=== PATIENT | male | born 2000 | race Caucasian/White ===

== ENCOUNTER 2020-06-21 08:56 | Emergency (ER) | payer BC ==
[2020-06-21 09:01] VITALS: BP 156/87
[2020-06-21] MEDS ORDERED: HYDROCODONE/ACETAMINOPHEN 5-325 MG (6 TAB/ER DISP) PO PRN (09:50)
[2020-06-21] MEDS ORDERED: AMOXICILLIN TRIHYDRATE 500 MG CAPSULE PO ONE (09:50)
--- NOTE | 2020-06-21 09:52 | ER Document Report ---
HPI - HPI Time Seen by Provider: 06/21/20 09:38 Pain Level: 4 Context: Patient is a 20-year-old male who comes to the emergency department for chief complaint of pain to the right upper jawline and in his teeth. He states he has a known fracture after he had his wisdom tooth pulled. He states he has had pain on and off for 2 weeks but over the past 2 days it has become unbearable. He reports slight swelling sensation of the face. He denies any other symptoms including sore throat, fever, neck pain. Denies any diagnosed medical history. He does have a dentist but has not been able to get in to see them yet. - CONSTITUTIONAL Constitutional: DENIES: Fever, Chills - EENT EENT: DENIES: Sore Throat, Ear Pain, Eye problems - NEURO Neurology: DENIES: Headache, Weakness, Vision blurred, Dizzinesss / Vertigo - GASTROINTESTINAL Gastrointestinal: DENIES: Abdominal Pain, Black / Bloody Stools - URINARY Urinary: DENIES: Dysuria, Urgency, Frequency - REPRODUCTIVE Reproductive: DENIES: :, Postmenopausal, Abnormal bleeding / discharge - MUSCULOSKELETAL Musculoskeletal: DENIES: Extremity pain Past Medical History - General Information source: Patient - Social History Smoking Status: Current Every Day Smoker Chew tobacco use (# tins/day): No Frequency of alcohol use: Occasional Drug Abuse: None Lives with: Family Family History: Reviewed & Not Pertinent Surgical Hx: Negative - Immunizations Immunizations up to date: Yes Hx Diphtheria, Pertussis, Tetanus Vaccination: Yes Vertical Provider Document - CONSTITUTIONAL General Appearance: WD/WN, No Apparent Distress - HEENT HEENT: Atraumatic, Normocephalic Mouth Diagram: 1 - Dental caries with surrounding erythema of the gumline, no induration or fluctuance, no abscess noted, no other concerning findings - NECK Neck: Normal Inspection - No swelling of the face or neck, no evidence of Osman's angina - RESPIRATORY Respiratory: Breath Sounds Normal, No Respiratory Distress - CARDIOVASCULAR Cardiovascular: Regular Rate, Regular Rhythm - GI/ABDOMEN Gastrointestinal: Abdomen Soft, Abdomen Non-Tender - BACK Back: Normal Inspection - MUSCULOSKELETAL/EXTREMETIES Musculoskeletal/Extremeties: MAEW, FROM, Non-Tender - NEURO Level of Consciousness: Awake, Alert, Appropriate Motor/Sensory: No Motor Deficit, No Sensory Deficit - DERM Integumentary: Warm, Dry, No Rash Course - Vital Signs Vital signs: Temp Pulse Resp BP Pulse Ox 97.7 F 75 15 156/87 H 99 06/21/20 09:14 06/21/20 09:14 06/21/20 09:14 06/21/20 09:14 06/21/20 09:14 - Laboratory Results Critical Laboratory Results Reviewed: No Critical Results - Radiology Results Critical Radiology Results Reviewed: No Critical Results Discharge - Discharge Clinical Impression: Pain, dental, Dental infection Condition: Stable Disposition: HOME, SELF-CARE Additional Instructions: Your evaluation is consistent with a dental infection. Take the antibiotics to completion. You can take 600 mg of ibuprofen and 1000 mg of Tylenol together every 6 hours for pain if needed. Follow-up with a dentist for repair/extraction or this will continue to happen. Return if you worsen including swelling of the face or any other concerning or worsening symptoms. Prescriptions: RX: Amoxicillin Trihydrate [Amoxil 500 mg Capsule] 500 mg PO BID 10 Days #20 capsule Forms: Return to Work, Elevated Blood Pressure
== END 2020-06-21 10:20 | disposition home or self-care (01) ==
LOC: ER 08:56
DX: K08.89 Other specified disorders of teeth and supporting structures (principal); R68.84 Jaw pain; F17.200 Nicotine dependence, unspecified, uncomplicated
CPT/HCPCS: 99283